=== PATIENT | female | born 1940 | race Caucasian/White ===

== ENCOUNTER 2018-01-20 17:17 | Inpatient (IN) | payer MEDICARE ==
[~2018-01-20] VITALS: Ht 152.4 cm; Wt 70.0 kg
--- NOTE | ~2018-01-20 | EC ---
PATIENT:JEFFERY GRIFFIN DATE OF SERVICE: 01/20/18 SEX: F MEDICAL RECORD: [id number] DATE OF : 44 LOCATION:D.M2 D.213 AGE OF PATIENT: 78 ADMISSION DATE: 01/20/18 REFERRING PHYSICIAN: INTERPRETING PHYSICIAN: SOLOMON DUBOSE MD ECHOCARDIOGRAM REPORT ECHO CHARGES 4 ECHO COMPLETE Date: 01/21 CLINICAL DIAGNOSIS: CHF ECHOCARDIOGRAPHIC MEASUREMENTS (adult normal given) AC root (d.<3.7cm) 3.2 cm LV Septum d (<1.2 cm> 1.2 cm Valve Excursion 2.1 cm LV Septum (systole) 1.7 cm Left Atria (s.<4.0cm> 5.0 cm LVPW d(<1.2cm) 1.2 cm RV (d.<2.3cm) 3.0 cm LVPW (sytole) 1.9 cm LV diastole(<5.6CM) 5.8 cm MV E-F(>70mm/sec) cm LV systole 4.1 cm LVOT Diameter 1.7 cm MV exc.(>10mm) cm Est.ejection fraction (50-75%) % DOPPLER: LVIT cm/sec A 134 cm/sec E 108 cm/sec LA cm/sec RVSP 47.0 mmHg LVOT 114 cm/sec AOP1/2T m/s Asc. Ao 163 cm/sec RVOT 55.0 cm/sec RA cm/sec PA 100 cm/sec AV Gradient Peak 11.0 mmHg AV Mean 4.5 mmHg AV Area 1.3 cm MV Gradient Peak 11.0 mmHg MV Mean 3.7 mmHg MV Area cm COMMENTS: Ship Boss: 1 LINNEA ANTOINEOE Voip Engineer: 2 Dr. Hughes TAPE# PACS Pericardial Effusion N DATE OF SERVICE: 01/21/2018 ECHOCARDIOGRAM FINDINGS: 1. Left ventricular chamber size is mildly dilated. Left ventricular systolic function is markedly reduced, overall ejection fraction in the 20% range. 2. Left atrium is enlarged at 5.0 cm. Right atrium and right ventricle chamber sizes are as well mildly dilated. 3. Valvular structures have normal structure and motion. ECHOCARDIOGRAM REPORT [id number] JEFFERY GRIFFIN 4. Doppler interrogation reveals moderate mitral regurgitation, moderate tricuspid regurgitation, no other valvular insufficiency or stenosis. Pulmonary systolic pressure is estimated 47 mmHg. 5. No evidence of pericardial effusion or left ventricular thrombus. TRANSINT:[id number] Voice Confirmation ID: [id number] DOCUMENT ID: [id number] SOLOMON DUBOSE MD at 1218 CC: [id number] DICTATION DATE: 01/21/18 1128 MERCHANDISER SEASONAL: 01/21/18 1252 ADM IN [facility] [address] [id number]
[2018-01-20 21:07] LABS: BASOPHILS 0.1 % (0-2); EOSINOPHILS 6.6 % (0-7); HEMATOCRIT 26.2 % (36.0-48.0); HEMOGLOBIN 8.9 g/dL (12-16); IMMATURE GRANULOCYTES 0.4 % (0-5); LYMPHOCYTES 12.6 % (15-50); MCH 26.5 pg (26.0-34.0); MEAN PLATELET VOLUME 9.5 fL (7.4-10.4); MONOCYTES 6.1 % (2-11); NEUTROPHILS 74.2 % (40-80); PLATELET COUNT 232 10x3/uL (130-400); RBC 3.36 10x6/uL (4.00-5.40); WBC 14.4 10x3/uL (4.8-10.8)
[2018-01-20 21:19] LABS: APTT 57.2 SECONDS (22.8-39.4); INR 2.74 (0.85-1.17); PROTIME 28.3 SECONDS (11.6-15.0)
[2018-01-20 21:46] LABS: ALBUMIN 2.2 g/dL (3.4-5.0); ANION GAP 16.4 mmol/L (8-16); BILIRUBIN - TOTAL 0.3 mg/dL (0.2-1.3); CALCIUM 8.8 mg/dL (8.5-10.1); CARBON DIOXIDE 23.3 mmol/L (21.0-32.0); CREATININE - SERUM 2.7 mg/dL (0.6-1.3); MAGNESIUM - SERUM 1.4 mg/dL (1.8-2.4); POTASSIUM - SERUM 4.7 mmol/L (3.5-5.1); PROTEIN - SERUM 6.7 g/dL (6.4-8.2)
[2018-01-20] MEDS ORDERED: ELIQUIS5 MG PO (22:26)
[2018-01-20] MEDS ORDERED: ZITHROMAX500 MG PO (22:27)
[2018-01-20] MEDS ORDERED: PROVENTIL/2.5 MG/3 M INH (22:27)
[2018-01-20] MEDS ORDERED: CEFTRIAXONE1 G/VIAL IM (22:28)
[2018-01-20] MEDS ORDERED: HUMULIN R100 U/ML SC (22:29)
[2018-01-20] MEDS ORDERED: ONDANSETRON4 MG/2 M3 IV (22:30)
[2018-01-20] MEDS ORDERED: KLONOPIN0.5 MG PO (22:30)
[2018-01-20] MEDS ORDERED: FERROUS SULFAT325 MG PO (22:31)
[2018-01-20] MEDS ORDERED: PRINIVIL20 MG PO (22:32)
[2018-01-20] MEDS ORDERED: FUROSEMIDE20 MG PO (22:32)
[2018-01-20] MEDS ORDERED: METOLAZONE2.5 MG PO (22:33)
[2018-01-20] MEDS ORDERED: TRADJENTA5 MG PO (22:34)
[2018-01-20] MEDS ORDERED: TENORMIN25 MG PO (22:34)
[2018-01-20] MEDS ORDERED: VALIUM 2 MG TAB2 MG PO (22:35)
[2018-01-20] MEDS ORDERED: GLUCOPHAGE500 MG PO (22:39)
[2018-01-20] MEDS ORDERED: VITAMIN D31000 UNIT PO (22:40)
[2018-01-21 00:53] LABS: AMORPHOUS SEDIMENT <1+ /lpf (NONE SEEN); APPEARANCE CLEAR (CLEAR); BACTERIA MODERATE /hpf (NONE SEEN); BILIRUBIN NEGATIVE (NEGATIVE); COLOR YELLOW (YELLOW); EPITHELIAL CELLS 0-5 /hpf (0-5); GLUCOSE NEGATIVE (NEGATIVE); KETONE NEGATIVE (NEGATIVE); NITRITE NEGATIVE (NEGATIVE); PROTEIN 1+ mg/dL (NEGATIVE); RED CELLS - URINE 0-5 /hpf (0-5); UROBILINOGEN NORMAL (NORMAL); WHITE CELLS - URINE 0-5 /hpf (0-5)
[2018-01-21 02:23] VITALS: BP 95/49; BMI 27.7
[2018-01-21 04:00] VITALS: BP 145/66
[2018-01-21 07:59] VITALS: BP 138/69
[2018-01-21] MEDS ORDERED: VITAMIN E400 UNI2 PO (09:35)
[2018-01-21 11:06] VITALS: BMI 27.7
[2018-01-21 11:35] VITALS: BP 131/76
[2018-01-21 12:10] LABS: % SATURATION 5 % (15-55); IRON 11 ug/dl (35-150); TOTAL IRON BIND CAPACITY 199 ug/dl (260-445); UNSAT IRON BIND CAPACITY 188 ug/dl (150-375)
[2018-01-21 15:33] VITALS: BP 103/48
[2018-01-21 16:22] VITALS: Ht 152.4 cm; Wt 70.0 kg
[2018-01-21 20:00] VITALS: BP 138/66
[2018-01-22 04:00] VITALS: BP 137/59
[2018-01-22 08:35] VITALS: BP 155/50
[2018-01-22 09:46] LABS: FOLATE (FOLIC ACID) - SERUM 8.3 ng/mL (>3.0)
[2018-01-22 10:45] LABS: BASOPHILS 0.1 % (0-2); EOSINOPHILS 23.5 % (0-7); HEMATOCRIT 26.5 % (36.0-48.0); HEMOGLOBIN 8.9 g/dL (12-16); IMMATURE GRANULOCYTES 0.6 % (0-5); LYMPHOCYTES 12.1 % (15-50); MCH 26.6 pg (26.0-34.0); MCHC 33.6 g/dL (31.0-37.0); MCV 79.1 fL (80.0-100.0); MONOCYTES 5.6 % (2-11); NEUTROPHILS 58.1 % (40-80); PLATELET COUNT 258 10x3/uL (130-400); RBC 3.35 10x6/uL (4.00-5.40); RDW 14.1 % (11.5-14.5); WBC 12.1 10x3/uL (4.8-10.8)
[2018-01-22 11:01] LABS: BILIRUBIN - TOTAL 0.3 mg/dL (0.2-1.3); CALCIUM 8.4 mg/dL (8.5-10.1); CARBON DIOXIDE 27.3 mmol/L (21.0-32.0)
[2018-01-22 11:03] LABS: ANION GAP 12.5 mmol/L (8-16); CREATININE - SERUM 1.8 mg/dL (0.6-1.3); POTASSIUM - SERUM 3.8 mmol/L (3.5-5.1)
[2018-01-22 11:42] VITALS: BP 150/69
[2018-01-22 12:14] LABS: INR 1.41 (0.85-1.17); PROTIME 16.7 SECONDS (11.6-15.0)
[2018-01-22 15:40] VITALS: BP 158/59
[2018-01-22 20:00] VITALS: BP 147/64
[2018-01-22 20:31] LABS: CREATININE - URINE 19.9 mg/dL (30-125)
[2018-01-23 01:51] VITALS: BP 139/57
[2018-01-23 05:12] LABS: BASOPHILS 0.1 % (0-2); EOSINOPHILS 23.9 % (0-7); HEMATOCRIT 28.7 % (36.0-48.0); HEMOGLOBIN 9.4 g/dL (12-16); IMMATURE GRANULOCYTES 0.9 % (0-5); LYMPHOCYTES 17.1 % (15-50); MCH 25.9 pg (26.0-34.0); MCHC 32.8 g/dL (31.0-37.0); MCV 79.1 fL (80.0-100.0); MEAN PLATELET VOLUME 9.2 fL (7.4-10.4); MONOCYTES 4.5 % (2-11); NEUTROPHILS 53.5 % (40-80); PLATELET COUNT 282 10x3/uL (130-400); RBC 3.63 10x6/uL (4.00-5.40); RDW 14.1 % (11.5-14.5); WBC 14.1 10x3/uL (4.8-10.8)
[2018-01-23 05:21] LABS: ANION GAP 16.5 mmol/L (8-16); CALCIUM 8.5 mg/dL (8.5-10.1); CARBON DIOXIDE 24.4 mmol/L (21.0-32.0); CREATININE - SERUM 1.7 mg/dL (0.6-1.3); POTASSIUM - SERUM 3.9 mmol/L (3.5-5.1)
[2018-01-23 05:54] VITALS: BP 125/54
[2018-01-23 08:18] VITALS: BP 143/62
[2018-01-23 11:09] VITALS: BP 141/66
[2018-01-23 16:03] VITALS: BP 145/62
[2018-01-23 20:22] VITALS: BP 118/37
[2018-01-24 01:50] VITALS: BP 115/46
[2018-01-24 05:25] VITALS: BP 164/47
[2018-01-24 06:02] LABS: HEMATOCRIT 25.2 % (36.0-48.0); HEMOGLOBIN 8.2 g/dL (12-16); MCH 25.9 pg (26.0-34.0); MCHC 32.5 g/dL (31.0-37.0); MCV 79.7 fL (80.0-100.0); MEAN PLATELET VOLUME 8.7 fL (7.4-10.4); PLATELET COUNT 247 10x3/uL (130-400); RBC 3.16 10x6/uL (4.00-5.40); RDW 14.1 % (11.5-14.5); WBC 11.1 10x3/uL (4.8-10.8)
[2018-01-24 06:20] LABS: ANION GAP 15.3 mmol/L (8-16); CALCIUM 8.1 mg/dL (8.5-10.1); CARBON DIOXIDE 24.7 mmol/L (21.0-32.0); CREATININE - SERUM 1.7 mg/dL (0.6-1.3)
[2018-01-24 08:31] LABS: EOSINOPHILS 22 % (0-7); LYMPHOCYTES 15 % (15-50); NEUTROPHILS 63 % (40-80); PLATELET ESTIMATE NORMAL
[2018-01-24 08:35] VITALS: BP 102/48
[2018-01-24 12:00] VITALS: BP 114/49
[2018-01-24 17:02] VITALS: BP 116/47
[2018-01-24 20:50] VITALS: BP 144/50
[2018-01-25 01:31] VITALS: BP 166/74
[2018-01-25 05:41] VITALS: BP 115/44
[2018-01-25 06:54] LABS: CALCIUM 8.6 mg/dL (8.5-10.1); CARBON DIOXIDE 26.7 mmol/L (21.0-32.0); CREATININE - SERUM 1.7 mg/dL (0.6-1.3); POTASSIUM - SERUM 3.7 mmol/L (3.5-5.1)
[2018-01-25 07:34] LABS: BASOPHILS 0.1 % (0-2); EOSINOPHILS 22.6 % (0-7); HEMATOCRIT 24.9 % (36.0-48.0); HEMOGLOBIN 8.2 g/dL (12-16); IMMATURE GRANULOCYTES 0.9 % (0-5); LYMPHOCYTES 22.7 % (15-50); MCH 26.3 pg (26.0-34.0); MCHC 32.9 g/dL (31.0-37.0); MCV 79.8 fL (80.0-100.0); MEAN PLATELET VOLUME 8.6 fL (7.4-10.4); MONOCYTES 3.5 % (2-11); NEUTROPHILS 50.2 % (40-80); PLATELET COUNT 253 10x3/uL (130-400); RBC 3.12 10x6/uL (4.00-5.40); RDW 14.2 % (11.5-14.5); WBC 8.9 10x3/uL (4.8-10.8)
[2018-01-25 09:09] VITALS: BP 141/55
[2018-01-25 17:23] VITALS: BP 118/50
[2018-01-25 22:05] VITALS: BP 115/44
[2018-01-26 02:28] VITALS: BP 129/49
[2018-01-26 05:22] VITALS: BP 136/76
[2018-01-26 07:18] LABS: BASOPHILS 0 % (0-2); EOSINOPHILS 23.3 % (0-7); HEMATOCRIT 26.3 % (36.0-48.0); HEMOGLOBIN 8.4 g/dL (12-16); IMMATURE GRANULOCYTES 0.9 % (0-5); LYMPHOCYTES 21.3 % (15-50); MCH 25.7 pg (26.0-34.0); MCHC 31.9 g/dL (31.0-37.0); MCV 80.4 fL (80.0-100.0); MEAN PLATELET VOLUME 8.8 fL (7.4-10.4); MONOCYTES 1.7 % (2-11); NEUTROPHILS 52.8 % (40-80); PLATELET COUNT 293 10x3/uL (130-400); RBC 3.27 10x6/uL (4.00-5.40); RDW 14.3 % (11.5-14.5); WBC 9.6 10x3/uL (4.8-10.8)
[2018-01-26 07:22] LABS: ANION GAP 11.5 mmol/L (8-16); CALCIUM 8.7 mg/dL (8.5-10.1); CARBON DIOXIDE 27.2 mmol/L (21.0-32.0); CREATININE - SERUM 1.7 mg/dL (0.6-1.3); POTASSIUM - SERUM 3.7 mmol/L (3.5-5.1)
[2018-01-26 08:20] VITALS: BP 132/65
[2018-01-26 11:24] VITALS: BP 157/69
[2018-01-26 16:10] VITALS: BP 176/60
[2018-01-26 20:24] VITALS: BP 131/56
[2018-01-27 06:54] LABS: BASOPHILS 0.1 % (0-2); EOSINOPHILS 8.7 % (0-7); HEMATOCRIT 23.6 % (36.0-48.0); HEMOGLOBIN 7.6 g/dL (12-16); IMMATURE GRANULOCYTES 0.8 % (0-5); LYMPHOCYTES 19.4 % (15-50); MCH 25.9 pg (26.0-34.0); MCHC 32.2 g/dL (31.0-37.0); MCV 80.5 fL (80.0-100.0); MEAN PLATELET VOLUME 8.5 fL (7.4-10.4); MONOCYTES 3.7 % (2-11); NEUTROPHILS 67.3 % (40-80); PLATELET COUNT 236 10x3/uL (130-400); RBC 2.93 10x6/uL (4.00-5.40); RDW 14.4 % (11.5-14.5); WBC 8.5 10x3/uL (4.8-10.8)
[2018-01-27 07:10] LABS: ANION GAP 14.4 mmol/L (8-16); CALCIUM 9.1 mg/dL (8.5-10.1); CARBON DIOXIDE 24.9 mmol/L (21.0-32.0); CREATININE - SERUM 1.6 mg/dL (0.6-1.3)
[2018-01-27 07:14] LABS: POTASSIUM - SERUM 4.3 mmol/L (3.5-5.1)
[2018-01-27 08:35] VITALS: BP 101/83
[2018-01-27 12:02] VITALS: BP 150/22
[2018-01-27 16:12] VITALS: BP 150/74
[2018-01-27 19:11] LABS: % SATURATION 9 % (15-55); IRON 23 ug/dl (35-150); TOTAL IRON BIND CAPACITY 233 ug/dl (260-445); UNSAT IRON BIND CAPACITY 210 ug/dl (150-375)
[2018-01-27 20:00] VITALS: BP 163/73
[2018-01-28] VITALS: BP 163/69
[2018-01-28 08:22] VITALS: BP 185/91
[2018-01-28 10:31] LABS: CALCIUM 9.6 mg/dL (8.5-10.1); CARBON DIOXIDE 24.3 mmol/L (21.0-32.0); CREATININE - SERUM 1.5 mg/dL (0.6-1.3); MAGNESIUM - SERUM 1.5 mg/dL (1.8-2.4); PHOSPHOROUS 4.2 mg/dL (2.5-4.9); POTASSIUM - SERUM 4.3 mmol/L (3.5-5.1)
[2018-01-28 12:09] VITALS: BP 200/101
[2018-01-28 14:09] LABS: BASOPHILS 0.1 % (0-2); IMMATURE GRANULOCYTES 0.6 % (0-5); LYMPHOCYTES 10.6 % (15-50); MCH 27.3 pg (26.0-34.0); MCHC 32.9 g/dL (31.0-37.0); MEAN PLATELET VOLUME 8.5 fL (7.4-10.4); MONOCYTES 4.5 % (2-11); NEUTROPHILS 76.2 % (40-80); PLATELET COUNT 239 10x3/uL (130-400); RDW 14.3 % (11.5-14.5)
[2018-01-28 14:22] LABS: HEMATOCRIT 32.8 % (36.0-48.0); HEMOGLOBIN 10.8 g/dL (12-16); RBC 3.95 10x6/uL (4.00-5.40); WBC 15.9 10x3/uL (4.8-10.8)
[2018-01-28 16:16] VITALS: BP 179/67
[2018-01-28 22:01] VITALS: BP 157/78
[2018-01-29 01:03] VITALS: BP 148/67
[2018-01-29 06:37] LABS: BASOPHILS 0.2 % (0-2); EOSINOPHILS 5.7 % (0-7); HEMATOCRIT 31.1 % (36.0-48.0); HEMOGLOBIN 10.2 g/dL (12-16); IMMATURE GRANULOCYTES 0.5 % (0-5); LYMPHOCYTES 16.4 % (15-50); MCH 27.2 pg (26.0-34.0); MCHC 32.8 g/dL (31.0-37.0); MCV 82.9 fL (80.0-100.0); MEAN PLATELET VOLUME 8.8 fL (7.4-10.4); MONOCYTES 6.6 % (2-11); NEUTROPHILS 70.6 % (40-80); PLATELET COUNT 211 10x3/uL (130-400); RBC 3.75 10x6/uL (4.00-5.40); RDW 14.4 % (11.5-14.5); WBC 12.3 10x3/uL (4.8-10.8)
[2018-01-29 07:00] VITALS: BP 162/76
[2018-01-29 07:28] LABS: ANION GAP 16.1 mmol/L (8-16); CARBON DIOXIDE 24.7 mmol/L (21.0-32.0); CREATININE - SERUM 1.5 mg/dL (0.6-1.3); PHOSPHOROUS 4.3 mg/dL (2.5-4.9); POTASSIUM - SERUM 4.8 mmol/L (3.5-5.1)
[2018-01-29 07:30] LABS: FOLATE (FOLIC ACID) - SERUM 4.8 ng/mL (>3.0)
[2018-01-29 13:03] VITALS: BP 154/76
[2018-01-29] MEDS ORDERED: LOPRESSOR25 MG PO (13:20)
[2018-01-29] MEDS ORDERED: LISINOPRIL10 MG PO (13:20)
== END 2018-01-29 16:42 | disposition home health service (06) | DRG 682 ==
LOC: D.M2 17:17
PROVIDERS: Family Medicine; Internal Medicine Nephrology
DX: N17.9 Acute kidney failure, unspecified (principal); J18.9 Pneumonia, unspecified organism; I50.43 Acute on chronic combined systolic (congestive) and diastolic (congestive) heart failure; E87.1 Hypo-osmolality and hyponatremia; I11.0 Hypertensive heart disease with heart failure; E11.9 Type 2 diabetes mellitus without complications; D50.9 Iron deficiency anemia, unspecified; E83.42 Hypomagnesemia; S90.922A Unspecified superficial injury of left foot, initial encounter; S90.921A Unspecified superficial injury of right foot, initial encounter; X58.XXXA Exposure to other specified factors, initial encounter; R22.1 Localized swelling, mass and lump, neck; L50.0 Allergic urticaria; T37.8X5A Adverse effect of other specified systemic anti-infectives and antiparasitics, initial encounter; Y92.230 Patient room in hospital as the place of occurrence of the external cause; Z85.3 Personal history of malignant neoplasm of breast; E66.01 Morbid (severe) obesity due to excess calories; Z68.27 Body mass index [BMI] 27.0-27.9, adult